=== PATIENT | male | born 1955 | race Caucasian/White ===

== ENCOUNTER 2018-12-20 13:06 | Inpatient (IN) | payer MEDICARE, MEDICAID ==
[~2018-12-20] VITALS: Ht 162.6 cm; Wt 68.0 kg
[~2018-12-20 13:06] MED LIST: ASPI-1 PO; CARB-13 PO; CLOP75TA35 PO; FAMO20TA8 PO; HYDR-4069 PO; METF-950 PO; METO-395 PO; TRAZ-218 PO
[2018-12-20 14:08] LABS: BASOPHILS % (AUTO) 0.6 % (0-1); EOSINOPHILS # (AUTO) 0.4 X10'3 (0-0.9); EOSINOPHILS % (AUTO) 5.4 % (0-6); HEMATOCRIT 26.2 % (42.0-52.0); HEMOGLOBIN 8.5 g/dl (14.0-17.9); LYMPHOCYTES # (AUTO) 1.2 X10'3 (1.1-4.8); LYMPHOCYTES % (AUTO) 15.3 % (21-51); MEAN CORPUSCULAR HEMOGLOBIN 28.9 PG (27.0-31.0); MEAN CORPUSCULAR HGB CONC 32.4 g/dL (33.0-36.5); MEAN PLATELET VOLUME 7.5 FL (7.4-10.4); MONOCYTES # (AUTO) 0.7 X10'3 (0-0.9); MONOCYTES % (AUTO) 8.4 % (2-12); NEUTROPHILS # (AUTO) 5.5 X10'3 (1.8-7.7); NEUTROPHILS % (AUTO) 70.3 % (42-75); PLATELET COUNT 429 X10'3 (140-440); RED BLOOD COUNT 2.95 X10'6 (4.70-6.10); RED CELL DISTRIBUTION WIDTH 15.4 % (11.5-14.5); WHITE BLOOD COUNT 7.8 X10'3 (4.5-11.0)
[2018-12-20 14:21] LABS: INR 0.9 INR; PARTIAL THROMBOPLASTIN TIME 28 SECONDS (22-32)
[2018-12-20 14:23] LABS: ALANINE AMINOTRANSFERASE 31 U/L (12-78); ALBUMIN 1.5 G/DL (3.4-5.0); ALBUMIN/GLOBULIN RATIO 0.4 (1.1-1.5); ALKALINE PHOSPHATASE 73 IU/L (46-116); ANION GAP 5 (8-16); ASPARTATE AMINO TRANSFERASE 23 U/L (10-37); BILIRUBIN,TOTAL 0.1 MG/DL (0.1-1.0); BLOOD UREA NITROGEN 36 MG/DL (7-18); BUN/CREATININE RATIO 12.7 (5.4-32.0); CALCIUM 7.7 MG/DL (8.5-10.1); CHLORIDE 109 MMOL/L (99-107); CREATININE 2.84 MG/DL (0.60-1.10); GLUCOSE 111 MG/DL (70-104); POTASSIUM 5.3 MMOL/L (3.5-5.1); SODIUM 137 MMOL/L (135-145); TOTAL CARBON DIOXIDE 22.6 MMOL/L (24-32); TOTAL PROTEIN 5.4 G/DL (6.4-8.2); eGFR 23 ML/MIN
[2018-12-20] MEDS ORDERED: FURO40TA4 PO (15:51)
[2018-12-20] MEDS ORDERED: METO25TA6 PO (15:51)
[2018-12-20] MEDS ORDERED: HYDR-4069 PO (15:51)
[2018-12-20] MEDS ORDERED: QUET50TA22 PO (15:51)
[2018-12-20] MEDS ORDERED: BUSP10TA3 PO (15:51)
[2018-12-20] MEDS ORDERED: ALBU18HF2 PO (15:51)
[2018-12-20] MEDS ORDERED: CARB1TAB36 PO (15:51)
[2018-12-20] MEDS ORDERED: ATRIN PO (15:51)
[2018-12-20] MEDS ORDERED: CLOP75TA33 PO (15:51)
[2018-12-20] MEDS ORDERED: magnesium hydroxide 30ml (MOM) UD suspension PO PRN (17:15)
[2018-12-20] MEDS ORDERED: mag hydrox/Alum hydrox/simeth 30ml oral suspension PO PRN (17:15)
[2018-12-20] MEDS ORDERED: ondansetron/PF 4mg/2ml inj IV PRN (17:15)
[2018-12-20] MEDS ORDERED: acetaminophen 325mg tablet PO PRN (17:15)
[2018-12-20] MEDS ORDERED: albuterol 2.5 MG/3 ML nebule NEB PRN (17:35)
[2018-12-20] MEDS: furosemide 10 MG/1 ML 10ml inj IV SCH ×2 (17:36→20:44)
[2018-12-20] MEDS ORDERED: ipratropium/albuterol 3ml nebule IH PRN (17:40)
[2018-12-20 19:45] VITALS: BP 183/102
[2018-12-20] MEDS ORDERED: [UNRECOGNIZED DRUG - OTHER] PO SCH (20:00)
[2018-12-20] MEDS ORDERED: heparin, porcine 5000 units/ml vial SQ SCH (20:00)
[2018-12-20] MEDS: busPIRone 5mg tablet PO SCH (20:44)
[2018-12-20] MEDS: metoprolol tartrate 25mg tablet PO SCH (20:45)
[2018-12-20] MEDS: QUEtiapine 25mg tablet PO SCH (20:45)
[2018-12-20] MEDS: hydrALAZINE 25 MG tablet PO SCH (20:45)
[2018-12-20] MEDS: carbidoba-levodopa 25-100mg tablet PO SCH (20:45)
[2018-12-20 22:30] VITALS: BP 150/79
[2018-12-20 22:40] LABS: HEMOGLOBIN A1C 7.5 % (4.5-6.2)
[2018-12-21] VITALS (10 sets, daily range): BP systolic 130–156; BP diastolic 67–80
[2018-12-21 05:34] LABS: BASOPHILS # (AUTO) 0.1 X10'3 (0-0.2); EOSINOPHILS # (AUTO) 0.5 X10'3 (0-0.9); EOSINOPHILS % (AUTO) 9.4 % (0-6); LYMPHOCYTES # (AUTO) 1.2 X10'3 (1.1-4.8); LYMPHOCYTES % (AUTO) 24.4 % (21-51); MEAN CORPUSCULAR HGB CONC 33.1 g/dL (33.0-36.5); MEAN CORPUSCULAR VOLUME 87.6 FL (78-98); MEAN PLATELET VOLUME 7.9 FL (7.4-10.4); MONOCYTES # (AUTO) 0.5 X10'3 (0-0.9); MONOCYTES % (AUTO) 10.7 % (2-12); NEUTROPHILS # (AUTO) 2.7 X10'3 (1.8-7.7); NEUTROPHILS % (AUTO) 54.5 % (42-75); PLATELET COUNT 370 X10'3 (140-440); RED BLOOD COUNT 2.39 X10'6 (4.70-6.10); RED CELL DISTRIBUTION WIDTH 15.4 % (11.5-14.5)
[2018-12-21 05:35] LABS: ALBUMIN 1.2 G/DL (3.4-5.0); ANION GAP 7 (8-16); BLOOD UREA NITROGEN 38 MG/DL (7-18); BUN/CREATININE RATIO 13.2 (5.4-32.0); CHLORIDE 113 MMOL/L (99-107); CREATININE 2.88 MG/DL (0.60-1.10); GLUCOSE 96 MG/DL (70-104); POTASSIUM 4.7 MMOL/L (3.5-5.1); SODIUM 143 MMOL/L (135-145); TOTAL CARBON DIOXIDE 23.3 MMOL/L (24-32); eGFR 22 ML/MIN
[2018-12-21 06:07] LABS: HEMOGLOBIN 6.9 g/dl (14.0-17.9)
--- NOTE | 2018-12-21 06:18 | NUR ---
Critical Lab value H/H of 6.9/21.0 this am, called hospitalist test inspection engineer, left message. Ordered stat Type/Cross
--- NOTE | 2018-12-21 06:30 | NUR ---
Patient in room PCU 3014. I have received report from KEIRA Moreno and had the opportunity to ask questions and assume patient care.
[2018-12-21] MEDS ORDERED: clopidogrel 75mg tablet PO SCH (08:00)
[2018-12-21] MEDS: furosemide 10 MG/1 ML 10ml inj IV SCH ×2 (08:35→19:32)
[2018-12-21] MEDS: busPIRone 5mg tablet PO SCH ×2 (08:35→19:32)
[2018-12-21] MEDS: hydrALAZINE 25 MG tablet PO SCH ×3 (08:36→20:16)
[2018-12-21] MEDS: metoprolol tartrate 25mg tablet PO SCH ×2 (08:36→19:32)
[2018-12-21] MEDS: carbidoba-levodopa 25-100mg tablet PO SCH ×3 (09:59→20:16)
[2018-12-21 13:25] LABS: URINE AMPHETAMINE SCREEN NEGATIVE (Neg); URINE BARBITUATE SCREEN NEGATIVE (Neg); URINE BENZODIAZEPINES SCREEN NEGATIVE (Neg); URINE CANNABINOID SCREEN NEGATIVE (Neg); URINE COCAINE SCREEN NEGATIVE (Neg); URINE METHADONE SCREEN NEGATIVE (Neg); URINE OPIATE SCREEN NEGATIVE (Neg); URINE PHENCYCLIDINE SCREEN NEGATIVE (Neg)
--- NOTE | 2018-12-21 13:54 | NUR ---
DM/heart healthy education consult: Pt with A1c 7.5 seen at bedside. Pt denied RD visit at this time. Written heart healthy and DM education with referral to outpatient DM class and RD contact information provided. Pt endorses a good appetite, denies double protein or food allergies, and reports current mechanical soft texture modification appropriate. Will continue to follow. Addendum: 12/21/18 at [address] Amended: Links added.
--- NOTE | 2018-12-21 18:00 | NUR ---
Problems reprioritized. Patient report given, questions answered & plan of care reviewed with KEIRA Moreno.
[2018-12-21] MEDS ORDERED: haloperidol lactate 5mg/ml inj IM PRN (19:15)
[2018-12-21] MEDS ORDERED: dextrose 50%-water 50ml dispensing syringe IV PRN (19:15)
[2018-12-21] MEDS ORDERED: LORazepam 2 mg/ml vial IV PRN (19:15)
[2018-12-21] MEDS ORDERED: haloperidol 5mg tablet PO PRN (19:15)
[2018-12-21] MEDS ORDERED: thiamine 100mg/ml 2ml inj. IV ONE (19:15)
[2018-12-21] MEDS ORDERED: thiamine inj. 100 MG in normal saline 100ml IV soln 99 ML IV ONE (19:20)
[2018-12-21] MEDS: pantoprazole 40 MG vial IV SCH (19:32)
[2018-12-21] MEDS: LORazepam 1 MG tablet PO PRN (20:14)
[2018-12-21] MEDS: QUEtiapine 25mg tablet PO SCH (20:16)
[2018-12-22 02:30] VITALS: BP 139/76
[2018-12-22 05:25] LABS: ALBUMIN 1.3 G/DL (3.4-5.0); AMYLASE 56 U/L (25-115); ANION GAP 6 (8-16); BLOOD UREA NITROGEN 40 MG/DL (7-18); BUN/CREATININE RATIO 14.4 (5.4-32.0); CALCIUM 7.6 MG/DL (8.5-10.1); CHLORIDE 111 MMOL/L (99-107); CREATININE 2.78 MG/DL (0.60-1.10); GLUCOSE 90 MG/DL (70-104); POTASSIUM 4.6 MMOL/L (3.5-5.1); SODIUM 142 MMOL/L (135-145); TOTAL CARBON DIOXIDE 24.7 MMOL/L (24-32); eGFR 23 ML/MIN
[2018-12-22 05:31] LABS: BASOPHILS # (AUTO) 0.1 X10'3 (0-0.2); BASOPHILS % (AUTO) 0.9 % (0-1); EOSINOPHILS # (AUTO) 0.3 X10'3 (0-0.9); EOSINOPHILS % (AUTO) 5.2 % (0-6); HEMATOCRIT 27.9 % (42.0-52.0); HEMOGLOBIN 9.3 g/dl (14.0-17.9); LYMPHOCYTES # (AUTO) 0.5 X10'3 (1.1-4.8); LYMPHOCYTES % (AUTO) 8.2 % (21-51); MEAN CORPUSCULAR HEMOGLOBIN 29.3 PG (27.0-31.0); MEAN CORPUSCULAR HGB CONC 33.2 g/dL (33.0-36.5); MEAN CORPUSCULAR VOLUME 88.3 FL (78-98); MONOCYTES # (AUTO) 0.6 X10'3 (0-0.9); MONOCYTES % (AUTO) 9.3 % (2-12); NEUTROPHILS # (AUTO) 4.6 X10'3 (1.8-7.7); NEUTROPHILS % (AUTO) 76.4 % (42-75); PLATELET COUNT 336 X10'3 (140-440); RED BLOOD COUNT 3.16 X10'6 (4.70-6.10); RED CELL DISTRIBUTION WIDTH 15.9 % (11.5-14.5)
--- NOTE | 2018-12-22 06:17 | NUR ---
Patient in room PCU 3014. I have received report from KEIRA Moreno and had the opportunity to ask questions and assume patient care.
[2018-12-22 07:00] VITALS: BP 174/101
[2018-12-22] MEDS: pantoprazole 40 MG vial IV SCH (07:24)
[2018-12-22] MEDS: busPIRone 5mg tablet PO SCH (07:24)
[2018-12-22] MEDS: furosemide 10 MG/1 ML 10ml inj IV SCH (07:24)
[2018-12-22] MEDS: hydrALAZINE 25 MG tablet PO SCH ×2 (07:24→13:47)
[2018-12-22] MEDS: metoprolol tartrate 25mg tablet PO SCH (07:25)
[2018-12-22] MEDS: carbidoba-levodopa 25-100mg tablet PO SCH ×2 (07:26→13:47)
[2018-12-22] MEDS ORDERED: nicotine 14mg patch - 24hr TD SCH (08:00)
[2018-12-22] MEDS: LORazepam 1 MG tablet PO PRN (08:38)
[2018-12-22 11:00] VITALS: BP 126/61
[2018-12-22 13:45] VITALS: BP 120/62
[2018-12-22 15:00] VITALS: BP 128/73
--- NOTE | 2018-12-22 16:05 | NUR ---
Discharge information, including medications, S&S worsening condition & f/u with PCP reviewed with pt. Educated pt at length about importance of taking all prescribed medications and following up with [facility] within 1 week. Pt stated he would find and take his medications and would get to the [facility] in the coming week. IV removed, cannula intact. 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 Pt dressed himself in his own clothing and had his wallet with him. FWW delivered to room & sent with pt. Pt provided with 2 turkey sandwiches. [facility] and he was wheeled down to lobby in wheelchair carrying his FWW.
[2018-12-25 15:59] LABS: OCCULT BLOOD STOOL NEGATIVE (Neg)
== END 2018-12-22 16:20 | disposition home or self-care (01) | DRG 682 ==
LOC: ER 13:07 → PCU 3S 19:25 → CMPBEDREQ 12-22 00:22
PROVIDERS: ADMIT Family Medicine; ATTEND Family Medicine
PROC: 30233N1 Transfusion of Nonautologous Red Blood Cells into Peripheral Vein, Percutaneous Approach (ICD-10-PCS; principal; 2018-12-21)
DX: N17.9 Acute kidney failure, unspecified (principal); I50.33 Acute on chronic diastolic (congestive) heart failure; I13.0 Hypertensive heart and chronic kidney disease with heart failure and stage 1 through stage 4 chronic kidney disease, or unspecified chronic kidney disease; E44.0 Moderate protein-calorie malnutrition; D64.9 Anemia, unspecified; E87.5 Hyperkalemia; E11.22 Type 2 diabetes mellitus with diabetic chronic kidney disease; N18.9 Chronic kidney disease, unspecified; G20 Parkinson's disease; F15.10 Other stimulant abuse, uncomplicated; F17.210 Nicotine dependence, cigarettes, uncomplicated; Z91.19 Patient's noncompliance with other medical treatment and regimen; Z82.49 Family history of ischemic heart disease and other diseases of the circulatory system; Z71.51 Drug abuse counseling and surveillance of drug abuser; Z68.25 Body mass index [BMI] 25.0-25.9, adult
CPT/HCPCS: 36415; 71046; 80048; 80053; 80305; 82150; 82272; 83036; 83880; 84484; 85025; 85610; 85730; 86885; 86900; 86901; 86920; 87070; 93005; 93306; 97116; 97530; 99285; C9113; G0378; J1644; J1940; J3411; J7030; P9016

== ENCOUNTER 2018-12-28 11:15 | Emergency (ER) | payer MEDICARE, MEDICAID ==
[~2018-12-28] VITALS: Ht 162.6 cm; Wt 68.2 kg
[~2018-12-28 11:15] MED LIST changes: +ALBU18HF2 PO; -ASPI-1 PO; +ATRIN PO; +BUSP10TA3 PO; -CARB-13 PO; +CARB1TAB36 PO; +CLOP75TA33 PO; -CLOP75TA35 PO; -FAMO20TA8 PO; +FURO40TA4 PO; -METF-950 PO; -METO-395 PO; +METO25TA6 PO; +QUET50TA22 PO; -TRAZ-218 PO
[2018-12-28 11:19] VITALS: BP 177/98
== END 2018-12-28 11:42 | disposition home or self-care (01) ==
LOC: ER 11:15
DX: F41.9 Anxiety disorder, unspecified (principal); R44.3 Hallucinations, unspecified; E11.9 Type 2 diabetes mellitus without complications; Z79.899 Other long term (current) drug therapy; Z87.891 Personal history of nicotine dependence
CPT/HCPCS: 99284

== ENCOUNTER 2020-01-08 17:33 | Emergency (ER) | payer MEDICARE, MEDICAID ==
[~2020-01-08] VITALS: Ht 162.6 cm; Wt 72.3 kg
[~2020-01-08 17:33] MED LIST changes: -ALBU18HF2 PO; +ATOR20TA66 PO; -ATRIN PO; -CLOP75TA33 PO; +CLOP75TA35 PO; +FURO-149 PO; -FURO40TA4 PO; +INSU100I31 SQ; +METF-438 PO; +QUET150T4 PO; -QUET50TA22 PO
[2020-01-08 18:25] VITALS: BP 164/96
--- NOTE | 2020-01-08 18:57 | NUR ---
spoke with rn at [facility] and let them know we are discahring pt back to their care. pt denies intent to harm self or others.
--- NOTE | 2020-01-08 19:14 | NUR ---
waiting for transport back to [place]
--- NOTE | 2020-01-08 19:23 | NUR ---
[facility] called and will be arranging picker packer for patient
== END 2020-01-08 19:58 | disposition home or self-care (01) ==
LOC: ER 17:34
DX: R45.6 Violent behavior (principal); I50.9 Heart failure, unspecified; E11.22 Type 2 diabetes mellitus with diabetic chronic kidney disease; N18.9 Chronic kidney disease, unspecified; F41.9 Anxiety disorder, unspecified; Z60.2 Problems related to living alone; Z59.0 Homelessness; Z79.899 Other long term (current) drug therapy
CPT/HCPCS: 99284

== ENCOUNTER 2020-05-28 08:39 | Emergency (ER) | payer MEDICARE, MEDICAID ==
[~2020-05-28] VITALS: Ht 162.6 cm; Wt 59.1 kg
[2020-05-28 09:27] LABS: BASOPHILS % (AUTO) 0.7 % (0-1); EOSINOPHILS # (AUTO) 0.4 X10'3 (0-0.9); EOSINOPHILS % (AUTO) 7.3 % (0-6); HEMATOCRIT 22.3 % (42.0-52.0); HEMOGLOBIN 7.5 g/dl (14.0-17.9); LYMPHOCYTES # (AUTO) 0.8 X10'3 (1.1-4.8); LYMPHOCYTES % (AUTO) 12.2 % (21-51); MEAN CORPUSCULAR HEMOGLOBIN 32.6 PG (27.0-31.0); MEAN CORPUSCULAR HGB CONC 33.4 g/dL (33.0-36.5); MEAN CORPUSCULAR VOLUME 97.6 FL (78-98); MEAN PLATELET VOLUME 6.8 FL (7.4-10.4); MONOCYTES # (AUTO) 0.6 X10'3 (0-0.9); MONOCYTES % (AUTO) 9.8 % (2-12); NEUTROPHILS # (AUTO) 4.3 X10'3 (1.8-7.7); PLATELET COUNT 396 X10'3 (140-440); RED BLOOD COUNT 2.29 X10'6 (4.70-6.10); RED CELL DISTRIBUTION WIDTH 14.3 % (11.5-14.5); WHITE BLOOD COUNT 6.2 X10'3 (4.5-11.0)
[2020-05-28 09:43] LABS: ALANINE AMINOTRANSFERASE 14 U/L (12-78); ALBUMIN 2.8 G/DL (3.4-5.0); ALBUMIN/GLOBULIN RATIO 0.8 (1.1-1.5); ALKALINE PHOSPHATASE 57 IU/L (46-116); ANION GAP 2 (8-16); ASPARTATE AMINO TRANSFERASE 8 U/L (10-37); BILIRUBIN,TOTAL 0.3 MG/DL (0.1-1.0); BLOOD UREA NITROGEN 23 MG/DL (7-18); BUN/CREATININE RATIO 5.7 (5.4-32.0); CALCIUM 8.6 MG/DL (8.5-10.1); CHLORIDE 101 MMOL/L (99-107); CREATININE 4.02 MG/DL (0.60-1.10); GLUCOSE 155 MG/DL (70-104); POTASSIUM 3.6 MMOL/L (3.5-5.1); SODIUM 139 MMOL/L (135-145); TOTAL CARBON DIOXIDE 36.4 MMOL/L (24-32); TOTAL PROTEIN 6.2 G/DL (6.4-8.2); eGFR 15 ML/MIN
--- NOTE | 2020-05-28 10:22 | NUR ---
hemoccult is negative at this time.
[2020-05-28 11:38] VITALS: BP 138/71
[2020-05-28 12:00] VITALS: BP 139/73
[2020-05-28 14:40] VITALS: BP 132/78
--- NOTE | 2020-05-28 14:50 | NUR ---
Attempted to contact RN @ [facility] ([phone]) to determine return transportation for pt. On hold 5 minutes. Will try again.
[2020-05-28 15:23] VITALS: BP 132/78
[2020-06-01 15:29] LABS: OCCULT BLOOD STOOL NEGATIVE (Neg)
== END 2020-05-28 15:28 | disposition home or self-care (01) ==
LOC: ER 08:39
DX: D64.9 Anemia, unspecified (principal); N18.6 End stage renal disease; G20 Parkinson's disease; I50.9 Heart failure, unspecified; E11.22 Type 2 diabetes mellitus with diabetic chronic kidney disease; F41.9 Anxiety disorder, unspecified; Z60.2 Problems related to living alone; Z99.2 Dependence on renal dialysis; Z59.0 Homelessness; Z79.4 Long term (current) use of insulin; Z79.899 Other long term (current) drug therapy
CPT/HCPCS: 36415; 36430; 80053; 82272; 85025; 86885; 86900; 86901; 86920; 99285; P9016; 99283